=== PATIENT | female | born 2000 | race Caucasian/White ===

== ENCOUNTER 2020-02-25 12:08 | Emergency (ER) | payer OTHER, SELFPAY ==
[~2020-02-25] VITALS: Ht 172.7 cm; Wt 61.2 kg
[2020-02-25 12:12] VITALS: Ht 172.7 cm; Wt 61.2 kg
[2020-02-25 13:25] VITALS: BP 109/75
== END 2020-02-25 13:25 | disposition home or self-care (01) ==
LOC: ED 12:08
DX: R50.9 Fever, unspecified (principal); R06.02 Shortness of breath; R51 Headache; Z20.828 Contact with and (suspected) exposure to other viral communicable diseases
CPT/HCPCS: Q0162; U0003-CS